=== PATIENT | female | born 1955 | race Caucasian/White ===

== ENCOUNTER 2017-04-27 07:52 | Emergency (ER) | payer OTHER ==
[2017-04-27 08:11] VITALS: BP 129/81
--- NOTE | 2017-04-27 14:08 | UC ---
Lamine Pino Jennifer, scribed for Kellie Ross MD on 04/27/17 at 0828 . Abdominal Pain Female HPI - HPI Summary HPI Summary: The patient is a 61 year old female who complains of diarrhea and fever after traveling to [facility] over two weeks ago. This lasted for three days and got better when she came home, but she still feels nauseous. The patient reports her bowel movement never went back to normal, started with diarrhea however, she has been unable to have bowel movement for the past four days. She reports her symptoms worsened yesterday and she now has abdominal pain, bloating, and vomited last night. The abdominal pain is significant. The patient denies rash, cold symptoms, cough, shortness of breath, palpitations, and problems with urination. - History of Current Complaint Chief Complaint: UCAbdominalPain Stated Complaint: ABD PAIN Time Seen by Provider: 04/27/17 08:18 Hx Obtained From: Patient Onset/Duration: Sudden Onset, Lasting Weeks - 2-3 weeks, Still Present, Worse Since - Yesterday Timing: Constant Severity Initially: Mild Severity Currently: Moderate Pain Intensity: 3 Pain Scale Used: 0-10 Numeric Location: Diffuse Radiates: No Character: Cramping, Other - Bloating Aggravating Factor(s): Nothing Alleviating Factor(s): Nothing Associated Signs and Symptoms: Positive: Other: - diarrhea, fever, nausea, vomiting, bloating. NEGATIVE: rash, cold symptoms, cough, shortness of breath, palpitations, problems with urination Allergies/Adverse Reactions: Allergies Allergy/AdvReac Type Severity Reaction Status Date / Time No Known Allergies Allergy Verified 04/27/17 08:11 Home Medications: Home Medications LORazepam [Lorazepam] 1 tab PO BEDTIME PRN 04/27/17 [History Confirmed 04/27/17] PMH/Surg Hx/FS Hx/Imm Hx Previously Healthy: Yes - NEG: HTN, DM - Surgical History Surgical History: Yes Surgery Procedure, Year, and Place: apendectomy 2009 - Family History Known Family History: Negative: Hypertension, Diabetes - Social History Alcohol Use: Occasionally Substance Use Type: None Smoking Status (MU): Former Smoker Type: Cigarettes - Immunization History Most Recent Tetanus Shot: UTD Review of Systems Constitutional: Fever Skin: Negative Eyes: Negative ENT: Negative Respiratory: Negative Cardiovascular: Negative Gastrointestinal: Abdominal Pain, Vomiting, Diarrhea, Nausea Motor: Negative Neurovascular: Negative Musculoskeletal: Other: - see hpi. a little achy with fever. Neurological: Negative Psychological: Negative Is Patient Immunocompromised?: No All Other Systems Reviewed And Are Negative: Yes Physical Exam - Summary Physical Exam Summary: Appearance: Well-Nourished Eye Exam: Normal ENT Exam: Normal Neck: Normal, No adenopathy appreciated Respiratory Exam: Normal, no dyspnea, no tachypnea, normal respiratory rate Chest non-tender, Lungs clear, Normal breath sounds, No respiratory distress, No accessory muscle use Cardiovascular Exam: Normal Cardiovascular: Heart rate regular, good general skin color, good capillary refill Abdominal Exam: Soft. Nondistended. No r/g. + mild diffuse tenderness, russ LLQ. No cvat or flank tenderness appreciated. Bowel Sounds: Present Musculoskeletal Exam: Normal. gait steady. Musculoskeletal: Strength Intact Neurological Exam: Normal: nonfocal, grossly intact Psychological Exam: Normal: conversing easily and appropriately Skin Exam: Normal: no visible or reported rash. Nondiaphoretic. Triage Information Reviewed: Yes Vital Signs: Initial Vital Signs Temp 96.6 F 04/27/17 08:02 Pulse 76 04/27/17 08:02 Resp 18 04/27/17 08:02 BP 129/81 04/27/17 08:02 Pulse Ox 97 04/27/17 08:02 Vital Signs Reviewed: Yes Abd Pain Female Course/Dx - Course Course Of Treatment: D/w Ms. Pascal recommendation for further evuation and treatment, Emergency Department. She and her partner carefully considered this , and agree to go to the ED. Call placed to ED, however, no answer by the time of pt's departure. Offered EMS but declined. Ms. Pascal was given the opportunity to ask several questions, to which I answered to the best of my ability. - Differential Dx/Diagnosis Provider Diagnoses: Acute abd pain in the setting of recent gastroenteritis. Hx ruptured appdx in the past. - Physician Notification/Consults Time Discussed With Above Provider: 08:41 - ER called. No one answered. Discharge - Discharge Plan Condition: Guarded Disposition: OTHER Discharge Disposition Comment: to ED [facility] via POV Patient Education Materials: Acute Abdominal Pain (ED) Referrals: Sarah Rasmussen MD [Primary Care Provider] - Additional Instructions: Please go directly to the Emergency Department. Do not stop en route. Avoid eating en route. Please stop and call 911 if you have worse or new problems en route. The documentation as recorded by the Lamine saeed Jennifer accurately reflects the service I personally performed and the decisions made by me, Kellie Ross MD.
== END 2017-04-27 08:41 ==
LOC: UCEAST 07:52
DX: R10.32 Left lower quadrant pain (principal); R19.7 Diarrhea, unspecified; R50.9 Fever, unspecified; R11.2 Nausea with vomiting, unspecified; R14.0 Abdominal distension (gaseous); Z87.891 Personal history of nicotine dependence
CPT/HCPCS: 99212; G0463

== ENCOUNTER 2017-04-27 09:07 | Emergency (ER) | payer OTHER ==
[2017-04-27] MEDS ORDERED: NS 0.9% 1000 ML* 1,000 ML IV ONE (09:57)
[2017-04-27 10:23] LABS: ABS Basophils 0.1 10^3/ul (0-0.2); ABS Eosinophils 0 10^3/ul (0-0.6); ABS Lymphocytes 1.3 10^3/ul (1.0-4.8); ABS Monocytes 0.8 10^3/ul (0-0.8); ABS Neutrophils 7.9 10^3/ul (1.5-7.7); ABS Nucleated RBC 0 10^3/ul; Eosinophil % 0.4 % (0-6); Hematocrit 41 % (35-47); Mean Corpuscular HGB Conc 34 g/dl (31-36); Mean Corpuscular Hemoglobin 31 pg (27-31); Mean Corpuscular Volume 92 fL (80-97); Mean Platelet Volume 8 um3 (7.4-10.4); Nucleated Red Blood Cells % 0; Platelet Count 297 10^3/ul (150-450); Red Blood Count 4.48 10^6/ul (4.0-5.4); Red Cell Distribution Width 13 % (10.5-15); White Blood Count 10.2 10^3/ul (3.5-10.8)
[2017-04-27] MEDS ORDERED: Ondansetron INJ* 2 MG/ML VIAL IV ONE (10:40)
[2017-04-27] MEDS ORDERED: Ketorolac INJ* 30 MG/ML 1 ML VIAL IV PUSH ONE (10:40)
[2017-04-27 10:41] LABS: EGFR Non-African American 74.2 (>60)
[2017-04-27] MEDS ORDERED: Iohexol 300* (CONTRAST) 10 ML SDV IV ONE (11:07)
[2017-04-27 13:08] LABS: Urine Appearance Cloudy; Urine Blood 3+ (Negative); Urine Color Yellow; Urine Ketones Trace (Negative); Urine Protein Negative (Negative); Urine Specific Gravity 1.006 (1.010-1.030); Urine Urobilinogen Negative (Negative)
--- NOTE | 2017-04-27 13:27 | RAD ---
CLINICAL HISTORY: Abdominal pain in a patient who recently traveled to [facility]. Relevant surgical history includes appendectomy. COMPARISON: Most recent CT of the abdomen and pelvis is dated May 08, 2014 TECHNIQUE: Contrast enhanced CT examination of the abdomen and pelvis from the lung bases through the initial tuberosities. The patient received 91 mL Omnipaque 300 intravenously prior to imaging.The patient received oral contrast as well prior to imaging. FINDINGS: VISUALIZED LUNG BASES: The visualized lung bases are grossly clear. There is no pleural effusion. ABDOMEN AND PELVIS: The liver, spleen, pancreas and right adrenal gland are grossly normal in appearance. Again seen at the left adrenal gland are 2 nodules measuring up to 2.3 and 2.9 cm in maximum axial dimension. These have not changed significantly since at least the May 13, 2008 CT examination and therefore likely represent benign adenomas. The gallbladder is normal. The kidneys are normal in appearance without focal mass, calcification or signs of hydronephrosis. The oral contrast has progressed as far as the splenic flexure. The small and large bowel are not distended. Consistent with the patient's reported surgical history, the appendix is not seen. Beginning at the descending colon there is mild wall thickening and infiltration of the fat surrounding the distal descending colon, sigmoid colon and proximal rectum. Scattered mesenteric lymph nodes are identified but none are pathologically enlarged. There is no retroperitoneal lymphadenopathy. A partially calcified mass at the right uterus is consistent with a partially calcified fibroid. At the right adnexa there is a soft tissue attenuation structure measuring 5.3 cm in greatest dimension, previously 4.5 cm on the May 08, 2014 CT examination. This appears to correspond to a mostly anechoic structure seen on the July 16, 2015 pelvic ultrasound. The abdominal aorta and iliac arteries are normal in course and diameter. Degenerative changes include multilevel loss of intervertebral disc height involving the lower thoracic and lumbar spine.There are no sinister bone lesions. IMPRESSION: 1. CT findings are most consistent with sigmoid colitis. There are no definite diverticula seen and therefore an infectious or inflammatory etiology is favored. Particularly if the patient has never undergone screening colonoscopy, direct visualization after the patient's acute symptoms have resolved may be advisable. 2. 5.3 cm low-attenuation structure at the right adnexa appears to correspond to the mostly fluid-filled cyst in the right ovary identified on the patient's July 16, 2015 pelvic ultrasound. In the absence of any clinical symptoms follow-up ultrasound imaging in a benign ovarian cysts in a postmenopausal woman should be considered according to the paper cited at the end of this dictation. 3. Additional chronic, degenerative and iatrogenic findings described in the body the report. Management of Asymptomatic Ovarian and Other Adnexal Cysts Imaged at [place]: Society of Radiologists in Ultrasound Consensus Conference Statement, Elina Lockett al., Radiology, Oct 2009, Vol. 256: 943-954. http://pubs.rsna.org/doi/[email or web address]
[2017-04-27] MEDS ORDERED: Sodium Phosphate ADULT ENEMA* 118 ml bottle PR ONE (13:40)
[2017-04-27] MEDS ORDERED: Magnesium CITRATE* 300 ML BTL PO ONE (13:40)
[2017-04-27] MEDS ORDERED: Sulfamethox/Trimethoprim DS 800/160* TAB PO ONE (13:40)
[2017-04-27] MEDS ORDERED: Polyethylene Glycol 3350* 17 GM PACKET PO PRN (13:40)
[2017-04-27 14:11] VITALS: BP 105/65
--- NOTE | 2017-04-29 12:24 | ED ---
Tommy Pino Angela, scribed for Fer Rice MD on 04/27/17 at 0939 . Abdominal Pain/Female - HPI Summary HPI Summary: This pt is a 61 y/o female presenting to [facility] referred from [facility] c/o diffuse abd pain and constipation x4 days. Pt reports she traveled to [facility] from - April 16 and became sick in [place]. She notes she had diarrhea and low grade fevers. Pt was placed on proton pump inhibitor and ornidazole ofloxacin in [facility]. Pt states she didn't finish the antibiotics and has 2 pills left. She reports her diarrhea has alleviated but now has constipation and abd pain. She states her last bowel movement was 4 days ago. Additionally notes she is not passing flatus, is nauseous and vomited twice yesterday. She took magnesium yesterday with no relief. PMHx ruptured appendectomy. - History of Current Complaint Chief Complaint: EDAbdPain Stated Complaint: ABD PAIN SENT FROM Hx Obtained From: Patient Onset/Duration: Lasting Days, Still Present Timing: Days Severity Currently: Mild Pain Intensity: 3 Pain Scale Used: 0-10 Numeric Location: Diffuse Radiates: No Aggravating Factor(s): Nothing Alleviating Factor(s): Nothing Associated Signs and Symptoms: Positive: Constipation, Nausea, Vomiting. Negative: Diarrhea Allergies/Adverse Reactions: Allergies Allergy/AdvReac Type Severity Reaction Status Date / Time No Known Allergies Allergy Verified 04/27/17 08:11 PMH/Surg Hx/FS Hx/Imm Hx Endocrine/Hematology History: Denies: Hx Diabetes, Hx Thyroid Disease Cardiovascular History: Denies: Hx Hypertension Respiratory History: Denies: Hx Asthma, Hx Chronic Obstructive Pulmonary Disease (COPD) GI History: Denies: Hx Ulcer - Cancer History Hx Chemotherapy: No Hx Radiation Therapy: No - Surgical History Surgery Procedure, Year, and Place: apendectomy 2009 Infectious Disease History: No Infectious Disease History: Reports: Traveled Outside the [place] in Last 30 Days - [place] Denies: Hx Hepatitis, Hx Human Immunodeficiency Virus (HIV) - Family History Family History: No FHx of colorectal CA. - Social History Alcohol Use: Occasionally Substance Use Type: Reports: None Smoking Status (MU): Former Smoker Type: Cigarettes Review of Systems Negative: Fever, Chills Eyes: Negative ENT: Negative Cardiovascular: Negative Gastrointestinal: Other - constipation Positive: Abdominal Pain, Vomiting, Nausea. Negative: Diarrhea Skin: Negative Neurological: Negative All Other Systems Reviewed And Are Negative: Yes Physical Exam - Summary Physical Exam Summary: VITAL SIGNS: Reviewed. GENERAL: Patient is a well-developed and nourished female who is lying comfortable in the stretcher. Patient is not in any acute respiratory distress. HEAD AND FACE: Normocephalic and atraumatic. EYES: PERRLA, EOMI x 2, No injected conjunctiva. EARS: Hearing grossly intact. Ear canals and tympanic membranes are WNL. MOUTH: Oropharynx within normal limits. NECK: Supple, trachea is midline, no adenopathy, no JVD. CHEST: Symmetric, no tenderness at palpation LUNGS: Clear to auscultation bilaterally. No wheezing or crackles. CVS: RRR, S1 and S2 present, no murmurs or gallops appreciated. ABDOMEN: Soft. Left upper quadrant tenderness. No signs of distention. Positive bowel sounds. No rebound no guarding, and no masses palpated. No abdominal bruit or pulsations. EXTREMITIES: FROM in all major joints, no edema, no cyanosis or clubbing. NEURO: Alert and oriented x 3. No acute neurological deficits. Speech is normal. SKIN: Dry and warm Triage Information Reviewed: Yes Vital Signs On Initial Exam: Initial Vitals Temp Pulse Resp BP Pulse Ox 97.8 F 72 18 117/71 96 04/27/17 09:16 04/27/17 09:16 04/27/17 09:16 04/27/17 09:16 04/27/17 09:16 Vital Signs Reviewed: Yes Diagnostics - Vital Signs Vital Signs Temp Pulse Resp BP Pulse Ox 04/27/17 09:16 97.8 F 72 18 117/71 96 - Laboratory Result Diagrams: 04/27/17 10:10 04/27/17 10:10 Lab Statement: Any lab studies that have been ordered have been reviewed, and results considered in the medical decision making process. - CT Abdomen/Pelvis CT CT Interpretation: Positive (See Comments) - IMPRESSION: 1. CT findings are most consistent with sigmoid colitis. There are no definite diverticula seen and therefore an infectious or inflammatory etiology is favored. Particularly if the patient has never undergone screening colonoscopy, direct visualization after the patient's acute symptoms have resolved may be advisable. 2. 5.3 cm low -attenuation structure at the right adnexa appears to correspond to the mostly fluid-filled cyst in the right ovary identified on the patient's July 16, 2015 pelvic ultrasound. In the absence of any clinical symptoms follow-up ultrasound imaging in a benign ovarian cysts in a postmenopausal woman should be considered according to the paper cited at the end of this dictation. 3. Additional chronic, degenerative and iatrogenic findings described in the body the report. Dr. Rice has reviewed this radiology report. CT Interpretation Completed By: Radiologist - EKG 10:10 Cardiac Rate: NL EKG Rhythm: Sinus Rhythm - at 62 bpm EKG Interpretation: No ST elevations. Normal axis. Re-Evaluation - Re-Evaluation First Eval Re-Evaluation Time: 13:34 Comment: I discussed the CT abdomen/pelvis results with the pt. Abdominal Pain Fem Course/Dx - Course Course Of Treatment: This pt is a 61 y/o female presenting to [facility] referred from [facility] c/o diffuse abd pain and constipation x4 days. Pt reports she traveled to [facility] from - April 16 and became sick in [place]. She notes she had diarrhea and low grade fever. Pt was placed on proton pump inhibitor and ornidazole ofloxacin in [facility]. Pt states she didn't finish the antibiotics and has 2 pills left. She reports her diarrhea was alleviated but now has constipation and abd pain. She states her last bowel movement was 4 days ago. Additionally notes she is not passing flatus, is nauseous and vomited twice yesterday. Test results without any significant abnormalities. Urinalysis is positive for UTI. Abdomen/Pelvis CT shows: 1. CT findings are most consistent with sigmoid colitis. There are no definite diverticula seen and therefore an infectious or inflammatory etiology is favored. Particularly if the patient has never undergone screening colonoscopy, direct visualization after the patient's acute symptoms have resolved may be advisable. 2. 5.3 cm low-attenuation structure at the right adnexa appears to correspond to the mostly fluid-filled cyst in the right ovary identified on the patient's July 16, 2015 pelvic ultrasound. In the absence of any clinical symptoms follow-up ultrasound imaging in a benign ovarian cysts in a postmenopausal woman should be considered according to the paper cited at the end of this dictation. 3. Additional chronic, degenerative and iatrogenic findings described in the body the report. CT shows the pt has colitis. In the ED course the pt was given IV fluids, Toradol for the pain, and Zofran for the nausea. Pt reports feeling better after these medications and her cramping pain has decreased. Pt decided to take fleet enema, magnesium citrate and lactulose at home. Therefore she will be discharged to home. Pt is aware of the ovarian cysts seen in the CT and the need to follow up with her PCP and/or OBGyn. She is also given a prescription for fleet enema for constipation and Bactrim for her UTI. Pt is instructed to return to the ED for any worsening or new symptoms. Pt is hemodynamically stable, alert and oriented x3. - Diagnoses Provider Diagnoses: Colitis, Constipation, Urinary tract infection Discharge - Discharge Plan Condition: Stable Disposition: HOME Prescriptions: Sodium Phosphate ADULT ENEMA* [Fleet Enema*] 1 enema NV DAILY PRN #2 btl PRN Reason: Constipation Sulfamethox/Trimethoprim DS* [Bactrim DS 800/160 TAB*] 1 tab PO BID #20 tab Patient Education Materials: Constipation (ED), Urinary Tract Infection in Women (ED), Colitis (ED) Referrals: Sarah Rasmussen MD [Primary Care Provider] - 3 Days Additional Instructions: Please follow up with your primary care provider. RETURN TO THE ED FOR ANY WORSENING SYMPTOMS. The documentation as recorded by the Tommy saeed Angela accurately reflects the service I personally performed and the decisions made by , Fer Rice MD.
--- NOTE | 2017-04-29 13:24 | PN ---
Progress Note - Progress Note Date of Service: 04/29/17 Note: Patient's urine culture grew Escherichia coli greater than 100,000. Patient placed on Bactrim at discharge will wait for final culture to see sensitive.
--- NOTE | 2017-04-30 09:29 | PN ---
Progress Note - Progress Note Date of Service: 04/27/17 Note: urine culture grew >100,000 of e. coli was placed on bactrim. according to final results e.coli is resistant to bactrim. spoke with patient at 9:20am to make aware antibiotic will be changed to macrobid which is susceptible. patient states she feels she should not have been discharged and is very nauseous and still having trouble. states she is still asymptomatic with UTI symptoms however. has an appointment with Dr Sarah carlos at 12:30pm. Sincerely apologized that she was not feeling any better and if she felt the need to come back to the ER prior too her appt to do so and the symptoms to look at for. also sent in a script for anti-emetic upon request, so she is able to tolerate antibiotics and po intake.
== END 2017-04-27 14:13 | disposition home or self-care (01) ==
LOC: ED 09:07
DX: K52.9 Noninfective gastroenteritis and colitis, unspecified (principal); K59.00 Constipation, unspecified; N39.0 Urinary tract infection, site not specified; R11.2 Nausea with vomiting, unspecified; Z87.891 Personal history of nicotine dependence
CPT/HCPCS: 36415; 74177; 80053; 81003; 81015; 82150; 82550; 83605; 83690; 83735; 83880; 85025; 86140; 87040; 87077; 87086; 87186; 93005; 96374; 96375; 99283; A9270-GY; J1885; J2405; Q9967